=== PATIENT | female | born 1975 | race Caucasian/White ===

== ENCOUNTER 2016-10-15 05:37 | Day surgery (SDC) | payer OTHER ==
[~2016-10-15] VITALS: Ht 154.9 cm; Wt 76.2 kg
[~2016-10-15 05:37] MED LIST: ALBU8.5H5 INH
[2016-10-15 06:44] VITALS: Ht 154.9 cm; Wt 76.2 kg
[2016-10-15] MEDS ORDERED: RANI150T5 PO (06:51)
[2016-10-15] MEDS ORDERED: OMEP40CA6 PO (06:51)
[2016-10-15 07:07] VITALS: BP 111/67; PULSE 60; RESP 16
[2016-10-15] MEDS ORDERED: MIDAZOLAM 1 MG/ML 2 ML INJ ONE ×2 (07:41→07:42)
[2016-10-15] MEDS ORDERED: FENTAnyl 50 MCG/ML VIAL ONE (07:41)
--- NOTE | 2016-10-15 08:57 | GILP ---
DATE OF PROCEDURE: NAME OF PROCEDURE: Esophagogastroduodenoscopy and biopsy. SURGEON: Ruth Akbar MD PREOPERATIVE DIAGNOSES: 1. Abdominal pain. 2. Chronic heartburn. POSTOPERATIVE DIAGNOSES: 1. Hiatal hernia. 2. Gastroesophageal reflux disease. 3. Gastritis with erosions. 4. Gastric mucosal biopsies were taken for Helicobacter pylori test. INDICATION FOR THE PROCEDURE: Ms. Darlene Guzmán is a 41-year-old female patient who had upper abdo roni pain and chronic heartburn, not responding to therapy. The patient was scheduled for endoscop ic examination for further evaluation. The procedure and possible complications were well explained to the patient. She understood and con sented to the procedure. DESCRIPTION OF PROCEDURE: Under the influence of fentanyl and Versed, the gastroscope was carefully introduced into the esophagus and under direct vision, it was advanced to the stomach and through t he pylorus into the duodenal bulb and descending duodenum. FINDINGS: ESOPHAGUS: The patient had hiatal hernia and gastroesophageal reflux disease. STOMACH: She had gastritis with erosions. Gastric mucosal biopsies were taken for H. pylori test. DUODENUM: Normal. She tolerated the procedure very well and there was no complication from the procedure. At the end of the procedure, she was awake with stable vital signs, and she was discharged home to the care of her family. IMPRESSION: 1. Hiatal hernia. 2. Gastroesophageal reflux disease. 3. Gastritis with erosions. 4. Gastric mucosal biopsies were taken for Helicobacter pylori test. PLAN: 1. Continue omeprazole. 2. Await H. pylori test report. Dictated By: RUTH CROWLEY/KEMAL Conf#: [id number] DID#: [id number]
== END 2016-10-15 10:21 | disposition home or self-care (01) ==
LOC: GIL 05:37
PROVIDERS: ATTEND Internal Medicine Gastroenterology
DX: K44.9 Diaphragmatic hernia without obstruction or gangrene (principal); K21.9 Gastro-esophageal reflux disease without esophagitis; K29.60 Other gastritis without bleeding
CPT/HCPCS: 43239; 84703; 87081; J2250; J3010; Z7610